=== PATIENT | female | born 1980 | race Caucasian/White ===

== ENCOUNTER 2017-05-16 01:22 | Emergency (ER) | payer OTHER | END 2017-05-16 02:47 | disposition home or self-care (01) | LOC: D.ER 01:22 | DX: S20.161A Insect bite (nonvenomous) of breast, right breast, initial encounter (principal) ==

== ENCOUNTER 2017-07-12 22:30 | Emergency (ER) | payer BC ==
[2017-07-12 23:28] LABS: BASOPHILS 0.1 % (0-2); EOSINOPHILS 2.8 % (0-7); HEMATOCRIT 37.1 % (36.0-48.0); HEMOGLOBIN 12.7 g/dL (12-16); IMMATURE GRANULOCYTES 0.5 % (0-5); LYMPHOCYTES 28.5 % (15-50); MCH 29.4 pg (26.0-34.0); MCHC 34.2 g/dL (31.0-37.0); MCV 85.9 fL (80.0-100.0); MEAN PLATELET VOLUME 9.2 fL (7.4-10.4); NEUTROPHILS 62.1 % (40-80); PLATELET COUNT 259 10x3/uL (130-400); RBC 4.32 10x6/uL (4.00-5.40); RDW 13.6 % (11.5-14.5); WBC 10.4 10x3/uL (4.8-10.8)
[2017-07-12 23:40] LABS: APPEARANCE CLEAR (CLEAR); BILIRUBIN NEGATIVE (NEGATIVE); COLOR YELLOW (YELLOW); GLUCOSE NEGATIVE (NEGATIVE); KETONE NEGATIVE (NEGATIVE); LEUKOCYTE ESTERASE NEGATIVE (NEGATIVE); NITRITE NEGATIVE (NEGATIVE); PROTEIN NEGATIVE (NEGATIVE); SPECIFIC GRAVITY 1.015 (1.005-1.020); UROBILINOGEN NORMAL (NORMAL)
[2017-07-12 23:41] LABS: BACTERIA NONE SEEN /hpf (NONE SEEN); EPITHELIAL CELLS NSEEN /hpf (0-5); WHITE CELLS - URINE NSEEN /hpf (0-5)
== END 2017-07-13 00:31 | disposition home or self-care (01) ==
LOC: D.ER 22:30
PROVIDERS: Family Medicine; Physician Assistant Medical
DX: N93.0 Postcoital and contact bleeding (principal); F90.9 Attention-deficit hyperactivity disorder, unspecified type

== ENCOUNTER 2017-07-18 12:54 | Emergency (ER) | payer BC ==
[2017-07-18 13:22] LABS: APPEARANCE HAZY (CLEAR); BILIRUBIN NEGATIVE (NEGATIVE); COLOR YELLOW (YELLOW); GLUCOSE NEGATIVE (NEGATIVE); KETONE NEGATIVE (NEGATIVE); LEUKOCYTE ESTERASE TRACE (NEGATIVE); NITRITE NEGATIVE (NEGATIVE); PROTEIN NEGATIVE (NEGATIVE); UROBILINOGEN NORMAL (NORMAL)
[2017-07-18 13:33] LABS: BASOPHILS 0.2 % (0-2); EOSINOPHILS 2.4 % (0-7); HEMATOCRIT 37.4 % (36.0-48.0); HEMOGLOBIN 12.8 g/dL (12-16); IMMATURE GRANULOCYTES 0.4 % (0-5); LYMPHOCYTES 21.7 % (15-50); MCH 29.2 pg (26.0-34.0); MCHC 34.2 g/dL (31.0-37.0); MCV 85.2 fL (80.0-100.0); MEAN PLATELET VOLUME 9.2 fL (7.4-10.4); MONOCYTES 6.5 % (2-11); NEUTROPHILS 68.8 % (40-80); PLATELET COUNT 229 10x3/uL (130-400); RBC 4.39 10x6/uL (4.00-5.40); RDW 13.5 % (11.5-14.5); WBC 10.8 10x3/uL (4.8-10.8)
[2017-07-18 13:39] LABS: BACTERIA MODERATE /hpf (NONE SEEN); MUCUS <1+ /lpf (NONE SEEN); RED CELLS - URINE 0-5 /hpf (0-5); SPERMATOZOA OCC /hpf (NONE SEEN)
[2017-07-18 13:49] LABS: ALBUMIN 3.4 g/dL (3.4-5.0); ALKALINE PHOSPHATASE 52 U/L (46-116); ALT (SGPT) 45 U/L (10-68); CALC OSMOLALITY 267 mosm/kg (275-300); CALCIUM 8.7 mg/dL (8.5-10.1); CARBON DIOXIDE 24.1 mmol/L (21.0-32.0); CHLORIDE - SERUM 103 mmol/L (98-107); CREATININE - SERUM 0.5 mg/dL (0.6-1.3); GLUCOSE 82 mg/dL (74-106); POTASSIUM - SERUM 3.5 mmol/L (3.5-5.1); PROTEIN - SERUM 7.4 g/dL (6.4-8.2); SODIUM 135 mmol/L (136-145); UREA NITROGEN 9 mg/dL (7-18); eGFR NON AFRICAN AMERICAN > 90 mL/min (90-120)
[2017-07-18 14:16] LABS: HCG - QUANTITATIVE (MATERNAL) 47512 mIU/mL
== END 2017-07-18 14:52 | disposition home or self-care (01) ==
LOC: D.ER 12:54
PROVIDERS: Emergency Medicine
DX: O26.892 Other specified pregnancy related conditions, second trimester (principal); Z3A.15 15 weeks gestation of pregnancy; O23.42 Unspecified infection of urinary tract in pregnancy, second trimester; F45.8 Other somatoform disorders; R10.9 Unspecified abdominal pain; F90.9 Attention-deficit hyperactivity disorder, unspecified type

== ENCOUNTER 2017-07-22 11:02 | Emergency (ER) | payer BC | END 2017-07-22 13:38 | disposition home or self-care (01) | LOC: D.ER 11:02 | DX: S00.83XA Contusion of other part of head, initial encounter (principal); S01.81XA Laceration without foreign body of other part of head, initial encounter; W20.8XXA Other cause of strike by thrown, projected or falling object, initial encounter; Y93.89 Activity, other specified; Y92.89 Other specified places as the place of occurrence of the external cause; F90.9 Attention-deficit hyperactivity disorder, unspecified type ==

== ENCOUNTER 2017-08-19 08:54 | Emergency (ER) | payer BC | END 2017-08-19 09:20 | disposition home or self-care (01) | LOC: D.ER 08:54 | DX: J02.9 Acute pharyngitis, unspecified (principal); F90.9 Attention-deficit hyperactivity disorder, unspecified type ==

== ENCOUNTER 2019-11-06 00:09 | Emergency (ER) | payer BC ==
[~2019-11-06] VITALS: Ht 162.6 cm; Wt 63.2 kg
[2019-11-06 00:45] VITALS: Ht 162.6 cm; Wt 63.2 kg
[2019-11-06] MEDS ORDERED: ADDERALL 30 MG30 MG PO (00:46)
[2019-11-06] MEDS ORDERED: CYMBALTA60 MG PO (00:46)
[2019-11-06 01:03] LABS: APPEARANCE CLEAR (CLEAR); BILIRUBIN NEGATIVE (NEGATIVE); COLOR YELLOW (YELLOW); GLUCOSE NEGATIVE (NEGATIVE); KETONE SMALL mg/dL (NEGATIVE); NITRITE NEGATIVE (NEGATIVE); PROTEIN NEGATIVE (NEGATIVE); SPECIFIC GRAVITY 1.015 (1.005-1.020); UROBILINOGEN NORMAL (NORMAL)
[2019-11-06] MEDS ORDERED: KEFLEX500 MG PO (01:46)
[2019-11-06 02:20] VITALS: BP 122/70
== END 2019-11-06 02:20 | disposition home or self-care (01) ==
LOC: D.ER 00:09
PROVIDERS: Emergency Medicine
DX: S01.81XA Laceration without foreign body of other part of head, initial encounter (principal); J11.1 Influenza due to unidentified influenza virus with other respiratory manifestations; H66.90 Otitis media, unspecified, unspecified ear; Z72.0 Tobacco use; W19.XXXA Unspecified fall, initial encounter; Y93.9 Activity, unspecified; Y92.9 Unspecified place or not applicable